=== PATIENT | female | born 1965 | race Caucasian/White ===

== ENCOUNTER → 2021-03-05 | Outpatient (CLI) | payer OTHER ==
[~2021-03-05] MED LIST: CYANOCOBAL1000 MCG/1 INJ; CYCLOBENZAPRINE10 MG PO; FLUTICASONE SPRAY; HYDROCODONE-AC1 EAC1 PO; HYDROXYZINE HCL25 MG PO; IMITREX100 MG PO; LISINOPRIL40 MG PO; NEURONTIN300 MG PO; ONDANSETRON HCL8 MG PO; VITAMIN D PO
[2021-03-05 13:49] LABS: HEMOGLOBIN 12.5 gm/dl (12.3-15.3); RED BLOOD COUNT 4.16 M/UL (4.00-5.10)
== END ==
LOC: OPSV2 12:00
PROVIDERS: Orthopaedic Surgery
DX: Z01.818 Encounter for other preprocedural examination (principal)
CPT/HCPCS: 36415; 80048; 85025; 93005

== ENCOUNTER → 2021-03-20 | Day surgery (SDC) | payer OTHER ==
[~2021-03-20] VITALS: Ht 152.4 cm; Wt 93.9 kg
== END | disposition home or self-care (01) ==
LOC: OR 03-08 09:00
DX: S83.242A Other tear of medial meniscus, current injury, left knee, initial encounter (principal); M94.262 Chondromalacia, left knee; M23.8X2 Other internal derangements of left knee; M17.11 Unilateral primary osteoarthritis, right knee; I10 Essential (primary) hypertension; E78.5 Hyperlipidemia, unspecified; K21.9 Gastro-esophageal reflux disease without esophagitis; F41.9 Anxiety disorder, unspecified; M10.9 Gout, unspecified; G43.909 Migraine, unspecified, not intractable, without status migrainosus; Z88.6 Allergy status to analgesic agent; Z88.0 Allergy status to penicillin; Z79.891 Long term (current) use of opiate analgesic; Z79.899 Other long term (current) drug therapy; X58.XXXA Exposure to other specified factors, initial encounter
CPT/HCPCS: J0171; J1885; J2001; J2250; J2405; J2704; J3010; J7120

== ENCOUNTER → 2021-05-07 | Outpatient (CLI) | payer OTHER | LOC: KOH-I 14:59 | DX: M25.371 Other instability, right ankle (principal); M19.071 Primary osteoarthritis, right ankle and foot | CPT/HCPCS: 73610 ==

== ENCOUNTER → 2021-05-16 | Outpatient (CLI) | payer OTHER | LOC: KOH-I 13:45 | DX: M25.571 Pain in right ankle and joints of right foot (principal); G89.29 Other chronic pain; S82.891G Other fracture of right lower leg, subsequent encounter for closed fracture with delayed healing; M25.371 Other instability, right ankle; M19.071 Primary osteoarthritis, right ankle and foot; M24.271 Disorder of ligament, right ankle; R93.6 Abnormal findings on diagnostic imaging of limbs; V89.2XXD Person injured in unspecified motor-vehicle accident, traffic, subsequent encounter | CPT/HCPCS: 73721 ==

== ENCOUNTER → 2022-08-06 | Outpatient (CLI) | payer OTHER | LOC: KOH-I 11:51 | DX: M25.571 Pain in right ankle and joints of right foot (principal); M19.171 Post-traumatic osteoarthritis, right ankle and foot | CPT/HCPCS: 73610 ==